=== PATIENT | female | born 1955 | race Caucasian/White ===

== ENCOUNTER 2017-02-10 08:08 | Day surgery (SDC) | payer BC ==
[~2017-02-10] VITALS: Ht 162.6 cm; Wt 90.5 kg
[~2017-02-10 08:08] MED LIST: HYDCHL12.5 PO; LOSA25 PO; METO25ER PO
== END 2017-02-10 11:08 | disposition home or self-care (01) ==
LOC: ORSCSDS 08:08
PROVIDERS: Surgery
PROC: 0DJD8ZZ Inspection of Lower Intestinal Tract, Via Natural or Artificial Opening Endoscopic (ICD-10-PCS; principal; 2017-02-10 09:45)
DX: Z12.11 Encounter for screening for malignant neoplasm of colon (principal); Z86.010 Personal history of colon polyps; I10 Essential (primary) hypertension; E78.5 Hyperlipidemia, unspecified; Z79.899 Other long term (current) drug therapy; Z87.891 Personal history of nicotine dependence
CPT/HCPCS: J7120

== ENCOUNTER 2020-05-24 11:46 | Day surgery (SDC) | payer OTHER ==
[~2020-05-24] VITALS: Ht 162.6 cm; Wt 88.6 kg
[~2020-05-24 11:46] MED LIST changes: +ROSU5 PO; +THERA-D2000 UNIT PO
[2020-05-24] MEDS ORDERED: Aspir 8181 MG (12:15)
--- NOTE | 2020-05-24 12:39 | NUR ---
05/24/20 1239 FATOU SALGADO IN TO SEE PT IN PRE OP. PT AXO, NPO SINCE 0900. IV TO RIGHT HAND IS FLUSHED AND IS PATENT. ENGAGED IN PRE OP TEACHING, ALL QUESTIONS ASKED AND ANSWERED. PT READY FOR PROCEDURE.
== END 2020-05-24 14:00 | disposition home or self-care (01) ==
LOC: ORSCSDS 11:46
PROVIDERS: Student in an Organized Health Care Education/Training Program
PROC: 0DB58ZX Excision of Esophagus, Via Natural or Artificial Opening Endoscopic, Diagnostic (ICD-10-PCS; principal; 2020-05-24 13:00)
DX: R13.10 Dysphagia, unspecified (principal); K22.70 Barrett's esophagus without dysplasia; K22.2 Esophageal obstruction; K44.9 Diaphragmatic hernia without obstruction or gangrene; I10 Essential (primary) hypertension; K21.9 Gastro-esophageal reflux disease without esophagitis; G47.33 Obstructive sleep apnea (adult) (pediatric); E66.9 Obesity, unspecified; Z68.33 Body mass index [BMI] 33.0-33.9, adult; Z87.891 Personal history of nicotine dependence; Z79.82 Long term (current) use of aspirin; Z79.899 Other long term (current) drug therapy
CPT/HCPCS: 88305; J2405; J2704; J7120

== ENCOUNTER 2020-09-07 06:24 | Day surgery (SDC) | payer OTHER ==
[~2020-09-07] VITALS: Ht 162.6 cm; Wt 86.9 kg
[~2020-09-07 06:24] MED LIST changes: +Aspir 8181 MG
--- NOTE | 2020-09-07 07:17 | NUR ---
09/07/20 0717 TAMIA HOPKINS UPPER AND LOWER DENTURES
--- NOTE | 2020-09-07 08:18 | NUR ---
09/07/20 0817 Lita Ponce 0.15CC OF EPI 1:1000 MIXED IN 30CC OF 0.5% BUPIVICAINE TO MAKE 1:200,000
--- NOTE | 2020-09-07 10:25 | NUR ---
09/07/20 1025 TAMIA HOPKINS PT HAD A PAIN LEVEL OF 8/10. 25MCG WAS GIVEN VIA IV. SHE REFUSED TO TAKE ANY MORE MEDICATON. STATES THE PAIN MED DOESN'T WORK FOR HER AND SHE DOESN'T LIKE TO FELL LOOPY FROM THE MEDICATION. ORAL PAIN MEDICATION WAS GIVEN PRIOR TO DC AND SHE WAS INSTRUCTED TO BLOOD DONOR RECRUITER RX PAIN MED. SHE STATES THAT SHE WILL GO HOME AND PROBABLY TAKE AN ANTI-INFLAMMATORY.
== END 2020-09-07 10:15 | disposition home or self-care (01) ==
LOC: ORSCSDS 06:24
PROVIDERS: Orthopaedic Surgery
PROC: 0LN70ZZ Release Right Hand Tendon, Open Approach (ICD-10-PCS; principal; 2020-09-07 07:30)
PROC: 0PSH04Z Reposition Right Radius with Internal Fixation Device, Open Approach (ICD-10-PCS; principal; 2020-09-07 07:30)
DX: S52.591A Other fractures of lower end of right radius, initial encounter for closed fracture (principal); M65.331 Trigger finger, right middle finger; I10 Essential (primary) hypertension; K21.9 Gastro-esophageal reflux disease without esophagitis; Z79.899 Other long term (current) drug therapy; Z87.891 Personal history of nicotine dependence
CPT/HCPCS: A9270; C1713; J0171; J0690; J1100; J2250; J2370; J2405; J2704; J3010; J7120